=== PATIENT | female | born 1950 | race Caucasian/White ===

== ENCOUNTER → 2019-09-02 09:56 | Outpatient (CLI) | payer MEDICARE, OTHER, SELFPAY ==
[2019-09-02 23:34] LABS: COVID19 Sendout Not Detected (Not Detect)
== END ==
PROVIDERS: Visit Provider Physician Assistant
DX: Z01.812 Encounter for preprocedural laboratory examination (principal)
CPT/HCPCS: 87635

== ENCOUNTER 2019-09-05 07:55 | Day surgery (SDC) | payer MEDICARE, OTHER, SELFPAY ==
[2019-08-29 08:27] VITALS: BMI 29.2
[2019-09-05] VITALS (20 sets, daily range): BP systolic 96–153; BP diastolic 58–87; PULSE 58–76; RESP 10–18; TEMP 36.1–36.8; O2SAT 92–98; BMI 30.4
[2019-09-05] MEDS: LACTATED RINGERS 1,000 ML 42 ML IV (08:36)
[2019-09-05] MEDS: GABAPENTIN 300 MG CAPSULE PO (08:42)
[2019-09-05] MEDS: ACETAMINOPHEN 325 MG TABLET 975 MG PO (08:43)
--- NOTE | 2019-09-05 09:11 | SUR.OPER ---
Lithotomy on padded OR bed, head on pillow, arms secured on padded arm boards at <90 degrees abduction. Legs secured in padded yellow fins stirrups.
--- NOTE | 2019-09-05 09:37 | PM.PREOP ---
Pre-operative Note COVID-19 COVID-19 status: Negative Result date/Date tested (Pos, Neg/Pending): 09/02/19 Interval Note History & Physical reviewed/Exam performed by Physician: Yes Changes to H&P: No
[2019-09-05] MEDS: CEFAZOLIN 2 GM/100 ML FROZ.PIGGY IV (09:48)
[2019-09-05] MEDS: BUPIVACAINE 0.5% W/ EPI (PF) 10 ML VIAL INJ (10:10)
--- NOTE | 2019-09-05 11:33 | PM.OP.1 ---
Operative Date/Time/Diagnoses Date of procedure: 09/05/19 Time of procedure: 11:33 Pre-op diagnosis: Uterovaginal prolapse with urinary incontinence Post-op diagnosis: same Procedure & Clinicians Procedure: Anterior and posterior repair with bilateral sacrospinous ligament fixation and TVT exact retropubic suburethral sling Same procedure as scheduled: Yes Indications: Symptomatic uterovaginal prolapse with urinary incontinence Surgeon: Marbella Gabriel Click Yes if Unassisted: Yes Anesthesia Type: General Operative Notes Findings: Cystocele, urethrocele, rectocele, uterine prolapse Closure Type: primary Specimen(s): none sent Applied: catheter (Gardner catheter) and other (Vaginal packing) Estimated Blood Loss (mL): 100 Blood products transfused: none Procedure in detail: Patient was brought to the operating room where she was placed in yellowfin stirrups and prepped and draped in the usual sterile fashion. A 20 point check system was reviewed prior to the beginning of the case. Pulsatile stockings were in place and functional throughout the case. Warming was in place. 2 g of Ancef were in prior to beginning of the case. A non latex Gardner catheter was placed. A dilute solution of 1% Marcaine with epinephrine was injected over this cystocele. An incision was made over the cystocele and the incision dissected laterally. A pursestring suture was used to decrease the caliber of the cystocele with 2-0 Vicryl suture. Plicating sutures were made over the cystocele. A small amount of the vaginal excessive tissue was removed with scissors. The incision was closed with 2-0 Vicryl suture. Dilute solution of Marcaine injected around the mid urethra. An incision was made over the mid urethra with a scalpel. The incision was extended laterally. A Gardner catheter was placed with a catheter guide in place. The suprapubic exit sites were marked with a marking pen. The needles attached to the sling were placed from the bottom up and left in place. The catheter was removed and 300 mL of saline were placed in the bladder and cystoscopy was performed. A 70?? scope followed by a 0?? scope were used to look at the bladder and the urethra was no damage apparent with placement of the needles. The graft was brought up loosely under the mid urethra. With sharp pressure against the bladder there was some leakage of urine. The plastic sheath was removed. The graft was cut under the skin of the suprapubic sites. Skin was closed with Steri-Strips. The vaginal incision was closed with 2-0 vicryl suture. Next a wedge shaped tissue was taken out of the posterior vaginal opening. The area over the rectocele was injected with a dilute solution of Marcaine with epinephrine. An incision was made over the rectocele with the scalpel. The dissection was undertaken laterally. Prolene suture with the Capio passer was placed through the uterosacral ligament on the right side and sutured to the underside of the cervix. The Prolene suture and the Capio Passer was placed through the uterosacral ligament on the left side and sutured to the underside of the vaginal tissue on the left. 0 Vicryl suture was used to plicate over the rectocele. A finger was placed in the rectum to be sure there were no sutures placed through the rectal mucosa. The uterosacral sutures were tightened down and the vaginal incision was closed with 2-0 Vicryl suture. The perineal body was built up with interrupted 0 Vicryl sutures. The skin was closed with the 2-0 Vicryl suture. Vaginal packing was placed in the vagina and the Gardner left in place. Counts of instruments and sponges were correct. The patient went to recovery room in good condition. Complications: none Post-operative Condition: stable Disposition: Acute Care Plan for aftercare: Will remove packing and catheter an a.m. and discharged after bladder trial
--- NOTE | 2019-09-05 11:48 | SUR.PHASEI ---
Facial tremor noted, pt with history of it and present on admit. Pt slow to wake up.
[2019-09-05] MEDS: fentaNYL 100 MCG/2 ML INJ IV (11:57)
--- NOTE | 2019-09-05 12:04 | SUR.PHASEI ---
Meicated for pain with fentanyl, report to FARTUN Cardenas
[2019-09-05] MEDS: OXYCODONE IR 5 MG TABLET PO (12:38)
--- NOTE | 2019-09-05 13:03 | SUR.PHASEI ---
Care assumed back from Theresa. pt medicated with oxycodone after applesauce tolerated. [id number] called to [facility]. and pt left in stable condition, bed low and locked, SCDs on and callbell in reach.
[2019-09-05] MEDS: LACTATED RINGERS 1,000 ML 100 ML IV ×2 (13:35→23:46)
--- NOTE | 2019-09-05 13:35 | PC.NURSE ---
Day shift admit note: 1300: Received patient from PACU by Mary WILLOUGHBY, awake, alert, and pleasantly calm. SCDs placed and IVF initiated upon arrival. Oriented to room, environment, and plan of care. High fall risk precautions initiated, call light within reach.
[2019-09-05] MEDS: HYDROCODONE/ACET 5/325 TABLET 2 TAB PO (18:54)
[2019-09-05] MEDS: DOCUSATE 250 MG CAPSULE PO (20:24)
[2019-09-06 05:15] VITALS: BP 118/76; PULSE 66; RESP 18; TEMP 36.1; O2SAT 95
[2019-09-06] MEDS: HYDROCODONE/ACET 5/325 TABLET 2 TAB PO ×3 (05:35→14:32)
[2019-09-06 06:39] LABS: Add Manual Diff / Slide Review NO; Basophils Absolute Auto 0 /uL (0-100); Basophils Percent Auto 0.6 % (0-2); Eosinophils Absolute Auto 0 /uL (0-450); Lymphocytes Absolute Auto 700 /uL (1100-4500); Lymphocytes Percent Auto 8.8 % (25-40); Mean Corpuscular HGB Conc 31.5 % (30-36); Mean Corpuscular Hemoglobin 25.7 PG (26-34); Mean Corpuscular Volume 81.4 fL (80-100); Monocytes Absolute Auto 400 /uL (0-900); Monocytes Percent Auto 4.5 % (3-14); Neutrophils Absolute Auto 7000 /uL (1500-7000); Neutrophils Percent Auto 86.1 % (50-75); Platelet Count 101 X10^3/uL (150-400); Red Blood Cell Count 4.67 X10^6/uL (4.0-5.2); Red Cell Distribution Width 16.2 % (11.6-14.8); White Blood Cell Count 8.1 X10^3/uL (4.5-11.0)
[2019-09-06 08:28] VITALS: BP 120/64; PULSE 77; RESP 16; TEMP 36.3; O2SAT 95
[2019-09-06 08:30] VITALS: O2SAT 95
[2019-09-06] MEDS: DOCUSATE 250 MG CAPSULE PO (09:05)
--- NOTE | 2019-09-06 09:20 | P.DS_ITS ---
History of Present Illness History of Present Illness Date Patient Seen: 09/06/19 Time Patient Seen: 09:21 Chief complaint: [id number] Colporrhaphy *OPB* Narrative: Patient with symptomatic uterine prolapse and urinary incontinence who underwent a anterior and posterior repair with sacrospinous ligament fixation and TVT exact suburethral sling. She had vaginal packing placed overnight and removed this a.m. patient was unable to urinate after removal of t he Gardner catheter. Gardner will be replaced in the patient will be taught how to use a leg bag and follow up in 3 days. Discharge Providers Provider Discharge Date: 09/06/19 Primary care physician: Altagracia Pichardo MD Consults: 09/05/19 08:35 Consult to Respiratory Therapy Evaluate & Treat Comment: Physician Instructions: Evaluate and treat Discharge provider: Marbella Gabriel MD Summary Hospital Course Discharge Diagnosis: Uterovaginal prolapse with stress urinary incontinence Hospital Course: Patient underwent a anterior and posterior repair with sacrospinous ligament fixation and TVT exact suburethral sling. The packing and Gardner were removed in a.m.. Patient was unable to urinate post removal of the Gardner catheter. She will be taught how to use a leg bag and follow up in 3 days for removal. Status at Discharge Cognitive/behavioral status at discharge: oriented Functional status at discharge: independent ambulation Overall status at discharge: patient is progressing back to baseline Time Spent with Patient Time spent: Less than 30 minutes Exam Vital Signs (past 8 hours): - 09/06/19 05:15 Temperature 97.0 F L Pulse Rate 66 Respiratory Rate 18 Blood Pressure 118/76 Pulse Oximetry 95 Oxygen Delivery Method Room Air Oxygen Flow Rate 0 Narrative Exam Narrative: Abdomen is soft, nontender. Patient has a small amount ecchymosis on the suprapubic site. The vaginal packing had a normal amount of blood. Extremities without edema and nontender Objective Labs Result Diagrams: 09/06/19 06:25 Labs: Laboratory Results - last 24 hr 09/06/19 06:25 WBC 8.1 RBC 4.67 Hgb 12.0 Hct 38.0 MCV 81.4 MCH 25.7 L MCHC 31.5 RDW 16.2 H Plt Count 101 L Neut % (Auto) 86.1 H Lymph % (Auto) 8.8 L [place] % (Auto) 4.5 Eos % (Auto) 0.0 L Baso % (Auto) 0.6 Neut # (Auto) 7000 Lymph # (Auto) 700 L [place] # (Auto) 400 Eos # (Auto) 0 Baso # (Auto) 0 Discharge Plan Discharge Plan Patient Disposition: Home Discharge Med Rec/Prescriptions Prescriptions: New hydrocodone-acetaminophen 5-325 mg Tablet 2 tab PO Q4HR PRN (Reason: Pain, Severe (7-10)) Qty: 20 RF: 0 nitrofurantoin monohyd/m-cryst [Macrobid] 100 mg capsule 100 mg PO BID Qty: 10 RF: 0 Discontinued estradiol [Estrace] 0.01 % (0.1 mg/gram) cream 1 gram VAG 2XW RF: 0 Follow up/Referrals: Marbella Gabriel MD [Physician] - 09/09/19 (Remove Gardner) Discharge Orders: Discharge (Order); Ordered 09/06/19 Ordered By: Marbella Gabriel Provider Discharge Instructions Diet: Regular Activity: Do not lift over 10 lb and nothing in vagina for 6 weeks Catheter: 2-way Gardner Catheter comment: Patient is to be taught how to use leg bag for Gardner catheter Skin/Wound/Dressing Care Report to your healthcare provider any signs of infection, such as:: chills, fever and increased pain Dressing: Remove dressings after 24 hours. Leave Steri-Strips in place can get wet just pat dry remove after 1 week Discharge Data Primary Care Provider: Altagracia Pichardo Attending Provider: Marbella Gabriel
--- NOTE | 2019-09-06 09:21 | PC.NURSE ---
Addendum entered by Galilea Shore R.N. 09/06/19 14:50: Discharge summary packet reviewed with pt and her . All questions answered, follow up appointment made. Pt has stool softeners at home already. No further questions on Urinary catheter care or switching over to leg bag. Pt given back her own medications that went held in pharmacy. Pt left unit at 1434 in no distress via wheelchair with all belongings and [employer] escort. Pt's present to drive her home. Addendum entered by Galilea Shore R.N. 09/06/19 13:37: Silicone, non latex, 16F urinary catheter inserted per verbal order by Dr. Gabriel. Leg bag teaching completed with pt. Approx 850mls of urine emptied from urinary catheter bag. Dr. Gabriel present in room at 1250 and aware. Teaching with pt regarding sheikh catheter care completed as well. 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 Original Note: Day Shift- Dr. Gabriel called at 0920, if no void in 4 hours after urinary catheter removal. Bladder scan and call Dr. Misty Curry once pt has voided and PVR done. Made Dr. Gabriel aware that pt had 1 large and small clot trying to void around 0900. No void yet.
== END 2019-09-06 14:34 | disposition home or self-care (01) ==
LOC: OR 07:58 → AC 07:58
PROVIDERS: PCP Internal Medicine Geriatric Medicine; Referring Provider Specialist; Visit Provider Specialist
PROC: (CPT 57282; principal; 2019-09-05 09:45)
DX: N81.2 Incomplete uterovaginal prolapse (principal); N39.3 Stress incontinence (female) (male); G47.33 Obstructive sleep apnea (adult) (pediatric); K21.9 Gastro-esophageal reflux disease without esophagitis
CPT/HCPCS: 57282; 57260; 57288; 36415; 85025; C1771; J0690; J1100; J1885; J2405; J2704; J3010

== ENCOUNTER → 2019-09-17 11:50 | Outpatient (CLI) | payer MEDICARE, OTHER, SELFPAY ==
[2019-09-05 13:17] VITALS: BMI 30.4
[2019-09-18 13:58] LABS: COVID19 Sendout Not Detected (Not Detect)
== END ==
PROVIDERS: PCP Internal Medicine Geriatric Medicine; Visit Provider Physician Assistant
DX: Z01.812 Encounter for preprocedural laboratory examination (principal)
CPT/HCPCS: 87635

== ENCOUNTER 2019-09-20 09:30 | Day surgery (SDC) | payer MEDICARE, OTHER, SELFPAY ==
[2019-09-05 13:17] VITALS: BMI 30.4
[2019-09-18 07:33] VITALS: BMI 30.1
[2019-09-20] VITALS (10 sets, daily range): BP systolic 112–158; BP diastolic 74–89; PULSE 60–80; RESP 11–20; TEMP 35.7–36.5; O2SAT 91–99; BMI 29.9
--- NOTE | 2019-09-20 07:31 | P.HPOB_ITS ---
History of Present Illness History of Present Illness Reason for admission: other (Urinary retention postoperative) Narrative: Theresa Martinez is a 69 year old female who underwent a anterior and posterior repair with sacrospinous ligament fixation and TVT exact sling on 08/29/2019. Patient has had urinary retention since the procedure. Patient is here to have the sling cut to allow urination. FOR[facility]LY [facility], [facility] Medical History (Updated 09/09/19 @ 16:58 by Marbella Gabriel MD) Abnormal chest xray (Resolved ~2009) Allergies (Chronic) Carpal tunnel syndrome (Chronic ~2009) Cataracts, bilateral (Chronic ~2018) Chicken pox (Resolved) Facial twitching (Chronic) Frequent UTI (Chronic) Heavy menstrual period (Resolved) Hemochromatosis (Chronic ~2007) Irregular menstrual cycle (Resolved) Measles (Resolved) Menopause (Resolved ~2006) Mumps (Resolved) Osteopenia (Chronic ~2009) Painful menstrual periods (Resolved) Perthes disease (Resolved ~1952) Polio (Resolved ~1952) Right hip pain (Chronic ~1952) Shoulder pain (Chronic) Sleep apnea (Chronic ~2016) Wears glasses (Chronic) Surgical History (Updated 09/18/19 @ 07:39 by Abiola Robert RN) Anesthesia (Resolved) Deviated nasal septum (Resolved ~2016) History of surgery (Acute 09/05/19) History of tubal ligation (Resolved ~01/1976) Toe fracture, right (Resolved ~04/2014) Family History (Updated 04/29/19 @ 21:26 by Lizzie Meadows) Father Hypertension Stroke Mother Hypertension Brother Hyperlipidemia Brother No problems noted. Sister Arthritis GERD (gastroesophageal reflux disease) Hyperlipidemia Hypertension Grandfather Cancer Grandmother Arthritis Grandfather No problems noted. Grandmother No problems noted. Family/Other Thyroid cancer Social History household members: spouse Smoking Status: Never smoker alcohol intake: never Meds Home Medications and Allergies Home Medications Medication Instructions Recorded Confirmed Type hydrocodone-acetaminophen 2 tab PO Q4HR PRN #20 tab 09/06/19 09/12/19 Rx nitrofurantoin 100 mg PO BID #10 cap 09/16/19 Rx monohydrate/macrocrystals 100 mg capsule Allergies Allergy/AdvReac Type Severity Reaction Status Date / Time ceftriaxone AdvReac GI issues Verified 09/12/19 09:42 lactose AdvReac Verified 09/12/19 09:42 latex AdvReac mouth Verified 09/12/19 09:42 tingling procaine AdvReac disoriented Verified 09/12/19 09:42 Review of Systems Review of Systems Narrative: Urinary retention. ROS: Yes All systems reviewed with the patient and are negative except as otherwise documented Exam Narrative Exam Narrative: HEENT exam within normal limits. Lungs are clear to auscultation percussion. Heart is regular rate and rhythm no S3-S4 or murmurs. Abdomen is soft, nontender. Normal external genitalia. Healing vaginal incisions. Extremities without edema and nontender Assessment & Plan Assessment and plan (1) Postoperative urinary retention: Status: Acute Assessment & Plan narrative: Patient with urinary retention postop sling procedure. Vaginal incision to cut urethral sling. COVID-19 COVID-19 status: Negative Result date/Date tested (Pos, Neg/Pending): 09/17/19
[2019-09-20] MEDS: LACTATED RINGERS 1,000 ML 100 ML IV (10:01)
--- NOTE | 2019-09-20 10:27 | PM.PREOP ---
Pre-operative Note COVID-19 COVID-19 status: Negative Result date/Date tested (Pos, Neg/Pending): 09/17/19 Interval Note History & Physical reviewed/Exam performed by Physician: Yes Changes to H&P: No
[2019-09-20] MEDS: CEFAZOLIN 2 GM/100 ML FROZ.PIGGY IV (10:49)
--- NOTE | 2019-09-20 11:08 | SUR.OPER ---
Lithotomy on padded OR bed, head on pillow, arms secured on padded arm boards at <90 degrees abduction. Legs secured in padded yellow fins stirrups.
--- NOTE | 2019-09-20 11:15 | PM.OP.1 ---
Operative Date/Time/Diagnoses Date of procedure: 09/20/19 Time of procedure: 11:15 Pre-op diagnosis: Urinary retention post sling Post-op diagnosis: same Procedure & Clinicians Procedure: Revision of sling Same procedure as scheduled: Yes Indications: Urinary retention post sling Surgeon: Marbella Gabriel Click Yes if Unassisted: Yes Anesthesia Type: General Operative Notes Findings: Restriction of urethra at bladder neck from sling Closure Type: primary Specimen(s): none sent Estimated Blood Loss (mL): 10 Blood products transfused: none Procedure in detail: Patient was brought to the operating room where she underwent general anesthesia. She is placed in low Yellofin stirrups and prepped and draped in the usual sterile fashion. 2 g of Ancef were in prior to beginning of the case. Warming was with blankets. Pulsatile stockings in place and functional. A check system was reviewed with the staff in the room prior to beginning the case. A 6 Hegar dilator passed easily through the urethra into the bladder, however a latex-free Gardner catheter did meet some resistance with passing into the bladder. The area of the mid urethra was injected with 0.5% Marcaine with epinephrine. An incision was made through the prior incision. The graft was cut. The Gardner then passed easily into the bladder. 240 cc of saline were placed in the bladder. The vaginal incision was closed with 2 0 Vicryl suture. Patient went to recovery room in good condition. Counts of instruments and sponges were correct Complications: none Post-operative Condition: stable Disposition: same day surgery Plan for aftercare: Patient to be checked for postvoid residual prior to discharge
--- NOTE | 2019-09-20 11:22 | SUR.OPER ---
Lithotomy on padded OR bed, head on pillow, arms secured on padded arm boards at <90 degrees abduction. Legs secured in padded yellow fins stirrups.
[2019-09-20] MEDS: BUPIVACAINE 0.5% W/ EPI (PF) 30 ML VIAL INJ (11:25)
--- NOTE | 2019-09-20 11:26 | SUR.OPER ---
CONFIRMED WITH DR LEVI THE ADMINISTRATION OF ANCEF PRE-OPERATIVELY DUE TO PT ALLERGY
[2019-09-20] MEDS: KETOROLAC 30 MG/ML VIAL IV (11:49)
--- NOTE | 2019-09-20 12:13 | SUR.PHASEII ---
Patient c/o her chest feeling heavy, like she needed to cough or yawn. VS stable. Lungs clear, right lung decreased. Dr. Begum notified, will continue to monitor per MD, no new orders. At 1216 patient reported the feeling was resolved.
--- NOTE | 2019-09-20 15:41 | SUR.PHASEII ---
pt had trouble with urinary retention . she was able to void with difficulty for 200 cc of blood tinged urine. then straight cath for verbal order from dr liz for 300 cc. pt continued to complain of abdominal discomfort. bladder scan showed 700 cc +. dr liz asked for second straight cath. total was [address] liz saw pt at bedside and told patient that she was ok to discharge home. pt had been straight cating at home and understands that she may need to do so if unable to void
== END 2019-09-20 14:50 | disposition home or self-care (01) ==
PROVIDERS: PCP Internal Medicine Geriatric Medicine; Referring Provider Specialist; Visit Provider Specialist
PROC: 0TSD0ZZ Reposition Urethra, Open Approach (ICD-10-PCS; CPT 57287; principal; 2019-09-20 10:45)
DX: T83.29XA Other mechanical complication of graft of urinary organ, initial encounter (principal); N99.89 Other postprocedural complications and disorders of genitourinary system; R33.8 Other retention of urine; G47.33 Obstructive sleep apnea (adult) (pediatric)
CPT/HCPCS: 57287; J0690; J1100; J1885; J2250; J2405; J2704; J3010